=== PATIENT | male | born 1980 | race Caucasian/White ===

== ENCOUNTER 2017-01-27 15:48 | Emergency (ER) | payer SELFPAY ==
[~2017-01-27] VITALS: Ht 172.7 cm; Wt 81.6 kg
[2017-01-27 15:48] VITALS: BP 131/71; PULSE 98; RESP 19; TEMP 99.8; O2SAT 98
--- NOTE | 2017-01-27 15:48 | NUR ---
BROUGHT BACK TO BED #6 AND TRIAGED. REPORT GIVEN TO PIPPA
--- NOTE | 2017-01-27 15:55 | NUR ---
DR MAYERS AT BEDSIDE FOR EVALUATION
[2017-01-27] MEDS ORDERED: AMOXICILLIN/CLAVULANATE POTASSIUM 875 MG TABLET PO ONE (16:00)
[2017-01-27] MEDS ORDERED: IBUPROFEN 600 MG TABLET PO ONE (16:00)
[2017-01-27 16:55] VITALS: BP 96/53; PULSE 89; RESP 19; TEMP 98.6; O2SAT 99
--- NOTE | 2017-01-27 16:55 | NUR ---
Patient given written and verbal discharge instructions and verbalizes understanding. ER MD discussed with patient the results and treatment provided. Patient in stable condition. ID arm band removed. Rx of Motrin, Albuterol, and Augmentin given. Patient educated on pain management and to follow up with PMD. Pain Scale 0/10. Opportunity for questions provided and answered.
== END 2017-01-27 16:55 | disposition home or self-care (01) ==
LOC: SED 15:48
DX: J20.9 Acute bronchitis, unspecified (principal); M10.9 Gout, unspecified
CPT/HCPCS: 71010; 93005; 99284

== ENCOUNTER 2017-01-29 07:55 | Emergency (ER) | payer SELFPAY ==
[~2017-01-29] VITALS: Ht 172.7 cm; Wt 81.6 kg
--- NOTE | 2017-01-29 08:00 | NUR ---
Patient ambulated to bed 3 to gown for evaluation. Report given to Anthony.
[2017-01-29 08:04] VITALS: BP 111/79; PULSE 97; RESP 20; TEMP 98.2; O2SAT 97
--- NOTE | 2017-01-29 08:15 | NUR ---
Patient is in stable condtion, awake , alert and oriented x4. Patient states that he is having sharp aching pain to right big toe x 2 days. Pain scale 10/10. Toe is red and swollen and pain to touch. Patient took shepard juice to try an alleviate symptoms. No other complaints or injures per patient or noted.
--- NOTE | 2017-01-29 08:30 | NUR ---
ER at bedside examining patient.
[2017-01-29] MEDS ORDERED: COLCHICINE 0.6 MG TABLET PO ONE (09:00)
--- NOTE | 2017-01-29 10:23 | NUR ---
Patient is stable, ambulating with steady gait.
[2017-01-29 10:39] VITALS: BP 133/86; PULSE 88; RESP 18; TEMP 98.2; O2SAT 96
--- NOTE | 2017-01-29 10:39 | NUR ---
Patient given written and verbal discharge instructions and verbalizes understanding. ER MD discussed with patient the results and treatment provided. Patient in stable condition. ID arm band removed. Rx of [place] and Colchicine given. Patient educated on pain management and to follow up with PMD in 3-5 days. Pain Scale 6/10. Prescription given and patient states will take medication at home Opportunity for questions provided and answered.
== END 2017-01-29 10:39 | disposition home or self-care (01) ==
LOC: SED 07:55
DX: M10.9 Gout, unspecified (principal)
CPT/HCPCS: 99283